=== PATIENT | female | born 1940 | race Caucasian/White ===

== ENCOUNTER → 2017-09-30 | Outpatient (REF) | payer MEDICARE ==
[~2017-09-30] MED LIST: ACYC-50 PO; ALL300 PO; BACDS PO; CEP500 PO; CLI150 PO; DAR100 PO; ENA10 PO; ENA5 PO; EZE10 PO; FUR40 PO; FUR80 PO; HYDR-2946 PO; IBUP200C72 PO; INDO50CA92 PO; LEV500 PO; LEVO50TA86 PO; LIDO700A25 TP; LOR5 PO; LOR5/325 PO; MAGN300C3 PO; METH4TAB57 PO; OMEP40CA79 PO; OXYGEN INH; POTA99TA12 PO; POTA99TA13 PO; TRA50 PO; VALA100062 PO; [UNRECOGNIZED DRUG - CODE] PO
[2017-09-30 14:12] LABS: PLATELET COUNT, AUTOMATED 181 K/uL (150-450)
== END ==
LOC: ZZSENDIN 13:56
PROVIDERS: ATTEND Physician Assistant
DX: D64.9 Anemia, unspecified (principal)
CPT/HCPCS: 82728; 85025; 85045